=== PATIENT | female | born 1945 | race Caucasian/White ===

== ENCOUNTER 2017-07-27 03:28 | Inpatient (IN) | payer OTHER ==
[2017-07-27] VITALS (8 sets, daily range): BP systolic 87–127; BP diastolic 52–96
[~2017-07-27] VITALS: Ht 165.1 cm; Wt 117.0 kg
--- NOTE | 2017-07-27 03:28 | NUR ---
BIBA TO ER BED 11
--- NOTE | 2017-07-27 03:32 | NUR ---
72Y F BIBA FROM HOME, PT STATES SHE WAS GETTING OUT OF BED TO GO TO THE BATHROOM AND LEGS GAVE OUT AND FELL TO THE GROUND. DENIES LOC, DENIES PAIN. PT AAOX4. BREATHING IS UNLABORED AND EVEN. REDDNESS NOTED TO BILAT SHINS, RIGHT HAND THUMB. DENIES MEDICAL HX
--- NOTE | 2017-07-27 03:32 | NUR ---
Kathleen mak in ED - 07/27/17 at 0531 by MEDDM BIBA TO ER BED 11
--- NOTE | 2017-07-27 03:32 | NUR ---
UPON ASESSMENT, SHE PRESENTS HERSELF STATING SHE FELL WHILE IN THE BATHROOM AND LANDED ON HER HIP X 1 HOUR AGO WHILE WAS HOME. PT ARRIVED IN WHAT APPEARS TO BE HER OWN DRIED FECES. CHARGE NURSE AJ AND LIVIER ATTEMPETED TO CLEAN THE PT BUT WHEN USING WET WIPES, THE FECES APPEARED TO BE DRY AND HARD TO REMOVE. PT HAS A FOUL SMELL, WHERE HIYGENE IS QUESTIONABLE. PT HAS SEVERAL WOUNDS AND SKIN PROBLES; RANGING FROM BILAT LEG SWELLING AND REDDNESS, THERE IS WOUND THAT IS OOZING TO THE RIGHT GUERRERO. WOUND TO THE GENITAL AREA, REDDNESS UNDER BOTH BREAST, AND SUPRAPUBIC AREA. AFTER FULLY CLEANING THE PT WITH LUCIEN,WE BROUGHT THE BACK TO SEE THE PT, AND ADDRESSED TO THE THAT THE PT WILL MOST LIKLEY BE ADMITTED TO THE HOSPITAL. THE THEN STATED, "QUINN BEEN WAITING OUT THERE FOR 2 HOURS AND NO ONE COULD HAVE TOLD ME?" WE RESPONDED BY TELLING THE , THAT THE PT NEEDED TO BE CLEANED AND ASSESSED FIRST. AND WHEN SEEING THE PT THE THEN STATED WHEN HE SAW THE PT LEGS, "WOW I DIDNT KNOW YOUR LEGS WERE THAT RED, OK IF SHE IS STAYING THEN I AM GOING HOME."
[2017-07-27] MEDS ORDERED: NACL 0.9% 1,000 ML IV ONE (03:45)
--- NOTE | 2017-07-27 04:00 | NUR ---
Patient being evaluated by Dr. Strickland at bedside.
--- NOTE | 2017-07-27 04:04 | NUR ---
X-Ray at bedside.
[2017-07-27 04:06] LABS: MEAN CORPUSCULAR HEMOGLOBIN 31 pg (27-31); MEAN CORPUSCULAR HGB CONC 33 g/dL (33-37)
[2017-07-27 04:25] LABS: HEMATOCRIT 42.7 % (36-48); MEAN CORPUSCULAR VOLUME 93 fL (80-94); PLATELET COUNT (AUTO) 449 K/uL (140-450); RED BLOOD CELL COUNT(AUTO) 4.57 MIL/uL (4.20-5.40); RED CELL DISTRIBUTION WIDTH 13.1 % (11.6-13.7)
[2017-07-27 04:27] LABS: PROTHROMBIN TIME 13.3 secs (10.8-13.4)
[2017-07-27 04:36] LABS: ALBUMIN 3.1 g/dL (3.4-5.0); ANION GAP 21.7 (8-16); ASPARTATE AMINOTRANSFERASE 15 U/L (15-37); CHLORIDE 95 mmol/L (98-107); GLUCOSE 400 mg/dL (74-106); POTASSIUM 3.7 mmol/L (3.5-5.1); SODIUM SERUM 132 mmol/L (136-145); TOTAL BILIRUBIN 1.4 mg/dL (0.0-1.0); UREA NITROGEN, BLOOD 23 mg/dL (7-18)
--- NOTE | 2017-07-27 04:38 | NUR ---
Patient noted to have existing wounds upon arrival to ER. Photos taken of wound and placed in chart. Wound covered with dressing. Physician informed.
[2017-07-27 04:44] LABS: WHITE BLOOD COUNT (AUTO) 34.4 K/uL (4.8-10.8)
[2017-07-27 04:45] LABS: LYMPHOCYTES % (MANUAL) 3 % (20-46); MONOCYTES % (MANUAL) 2 % (5-12)
[2017-07-27] MEDS ORDERED: NACL 0.9% 3,500 ML IV ONE (04:45)
[2017-07-27] MEDS ORDERED: ASPIRIN 81 MG TAB.CHEW PO ONE (04:45)
[2017-07-27] MEDS ORDERED: CLINDAMYCIN 900 MG in DEXTROSE 5% 100 ML IV ONE (05:00)
[2017-07-27] MEDS ORDERED: ENOXAPARIN 120 MG/0.8 ML SYR SUBQ ONE (05:00)
[2017-07-27] MEDS ORDERED: PIPERACILLIN/TAZOBACTAM 3.375 GM in DEXTROSE 5% 50 ML IV ONE (05:00)
[2017-07-27] MEDS ORDERED: PIPERACILLIN/TAZOBACTAM 3.375 GM VIAL IV ONE (05:13)
[2017-07-27] MEDS: NACL 0.9% 1,000 ML IV SCH ×4 (05:57→20:30)
[2017-07-27] MEDS ORDERED: ONDANSETRON 4 MG/2 ML VIAL IVP PRN (06:00)
[2017-07-27] MEDS ORDERED: HYDROcodone/APAP 7.5/325 MG 1 TAB PO PRN (06:00)
[2017-07-27] MEDS ORDERED: ACETAMINOPHEN 325 MG TAB PO PRN (06:00)
[2017-07-27] MEDS ORDERED: NITROGLYCERIN 0.4 MG TAB SL PRN (06:05)
[2017-07-27 06:09] LABS: APPEARANCE,URINE HAZY (CLEAR); BILIRUBIN,URINE 1+ (NEGATIVE); BLOOD, URINE NEGATIVE (NEGATIVE); COLOR,URINE YELLOW (YELLOW); LEUKOCYTE ESTERASE ,URINE TRACE (NEGATIVE); NITRITE, URINE NEGATIVE (NEGATIVE); UGLUCOSE NEGATIVE (NEGATIVE)
[2017-07-27 06:22] LABS: RBC,URINE 0-5 (RARE) /HPF (0-5)
[2017-07-27 06:37] LABS: CHOL/HDL RATIO 2.1 (1-4.5); FREE T4 (FREE THYROXINE) 1.03 ng/dL (0.76-1.46); PHOSPHORUS 2.4 mg/dL (2.5-4.9); THYROID STIMULATING HORMONE 1.45 uIU/mL (0.34-3.74)
--- NOTE | 2017-07-27 06:41 | NUR ---
ADULT PROTECTIVE SERVICE PAPER FILLED OUT AND GIVEN TO
[2017-07-27] MEDS ORDERED: CLINDAMYCIN 900 MG/6 ML VIAL IV ONE (06:42)
--- NOTE | 2017-07-27 07:01 | NUR ---
Patient will be admitted to care of DR ALEMAN. Admited to TELE 112A. Will go to room 112A. Belongings list completed. Report to POLO BHAKTA .
--- NOTE | 2017-07-27 07:05 | NUR ---
RECEIVED REPORT FROM ER NURSE WITH PT IN STABLE CONDITION. AWAKE ALERT AND ORIENTED. ON TELE MONITOR. POSITIONED COMFORTABLY IN BED. WITH SUTTON CATHETER TO GRAVITY. WITH IVF INFUSING ON LT AC #20. WILL ENDORSED PT TO AM NURSE FOR ADMISSION ON THE UNIT.
--- NOTE | 2017-07-27 07:20 | NUR ---
PER DIVERSITY SPECIALIST NURSE, PATIENT WAS ADMITTED AND ARRIVED ON UNIT AT 0705. ONLY GENERAL ASSESSMENT, AND ONLY MRSA SCREENING DONE. RECEIVED REPORT FROM DIVERSITY SPECIALIST NURSE AT BEDSIDE FOR CONTINUITY OF CARE. PATIENT ALERT AND ORIENTED X4. PATIENT ON TELE MONITOR. IV AT LEFT AC 20 G, SALINE LOCKED, FLUIDS HANGING BUT UNCONNECTED. SUTTON CATHETER TO GRAVITY, 50 ML OF CLEAR YELLOW URINE. ON ROOM AIR. PATIENT HAS REDNESS ON LEFT CHEEK. YELLOW DISCHARGE IN HER EYES. PATIENT'S RIGHT THUMB HAS AN OPEN SORE. PATIENT HAS REDNESS ON UNDER HER BREAST FOLDS. PATIENT HAS REDNESS ON THE LEFT UPPER QUADRANT OF HER ABDOMEN. PATIENT HAS REDNESS ON HER ABDOMINAL FOLDS. PATIENT HAS REDNESS TO HER SACRAL AREA. PATIENT HAS A SORE ON HER DALJIT AREA. PATIENT'S LEFT LOWER EXTREMITY HAS REDNESS. PATIENT'S RIGHT LOWER LEG HAS PARTIAL THICKNESS. PATIENT'S RIGHT SECOND TOE HAS AN OPEN SORE AND NO NAIL. PATIENT DENIES PAIN. BED ON LOWEST SETTING, CALL LIGHT WITHIN REACH. WILL CONTINUE TO MONITOR.
[2017-07-27] MEDS: LACTOBACILLUS RHAMNOSUS GG 1 EACH CAP PO SCH ×3 (08:00→16:27)
[2017-07-27] MEDS: METOPROLOL 25 MG TAB PO SCH ×2 (08:52→21:00)
[2017-07-27] MEDS: DOCUSATE SODIUM 100 MG GELCAP PO SCH ×2 (08:53→20:41)
--- NOTE | 2017-07-27 08:56 | NUR ---
ADMINISTERED MORNING MEDICATIONS TO PATIENT. LACTOBICILLUS NOT ADMINISTERED, IT WAS NOT AVAILABLE IN [facility]. PHARMACY HAS BEEN NOTIFIED. PATIENT TOLERATED MEDS WELL. WILL CONTINUE TO MONITOR.
[2017-07-27] MEDS ORDERED: LISINOPRIL 5 MG TAB PO SCH (09:00)
[2017-07-27] MEDS ORDERED: INSULIN LISPRO SLIDING SCALE 100 UNITS/ML VIAL SUBQ PRN (09:45)
[2017-07-27] MEDS ORDERED: DEXTROSE 50% 50 ML SYR IVP PRN ×2 (09:45→22:05)
[2017-07-27] MEDS ORDERED: hePARIN / DEXT 5% PREMIX 250 ML IV SCH (09:45)
[2017-07-27] MEDS ORDERED: HEPARIN PER PHARMACY MC PRN (09:45)
--- NOTE | 2017-07-27 10:08 | NUR ---
PATIENT HAS BEEN SCREENED AND CATEGORIZED HIGH NUTRITION RISK. PATIENT WILL BE SEEN WITHIN 1-2 DAYS OF ADMISSION. 07/27/17-07/28/[address]
[2017-07-27] MEDS ORDERED: SODIUM PHOS / POTASSIUM PHOS 1 PKT PDR PO SCH (10:16)
[2017-07-27] MEDS ORDERED: ALBUTEROL SULFATE/IPRATROPIU 3 ML SOL IH PRN (10:35)
--- NOTE | 2017-07-27 10:43 | NUR ---
P.T. NOTES RECEVIED P.T. EVAL ORDER, CHART REVIEWED, WHEN ATTEMPTING TO RECEIVE CLEARANCE FROM NRSG, PER KIRSTEN NURSE PT WILL BE TRANSFERRED TO ICU FOR DKA, BS AT 400. THIS P.T. SPOKE WITH DR. COOMBS TO CANCEL ORDER FOR P.T., WILL AWAIT UNTIL PT IS MORE MEDICALLY STABLE BEFORE P.T. EVAL UPON MD ORDER, DR. COOMBS AGREED. PVE
--- NOTE | 2017-07-27 10:50 | NUR ---
KARLA REPORTED TO DR WOLFE 3L N\C TO BE PLACED Addendum: 07/27/17 at 1149 by Jenny Wade RT DR COOMBS
[2017-07-27] MEDS ORDERED: HYDROmorphone PFS 2 MG/ML SYR IVP SCH ×2 (11:00→15:30)
--- NOTE | 2017-07-27 11:15 | NUR ---
TRANSFERRED PT TO THE ICU. PT ON TRANSPORT MONITOR, O2 IN TOW. PT TOLERATING WELL.
[2017-07-27] MEDS ORDERED: BLOOD GLUCOSE MONITORING 1 DEV DEV FS SCH (11:30)
--- NOTE | 2017-07-27 11:30 | NUR ---
PT TRANSFERRED FROM TELEMETRY. PT IS IN STABLE CONDITION.
--- NOTE | 2017-07-27 11:31 | NUR ---
PT IS ALERT AND ORIENTED X4, FOLLOWS COMMANDS, FRISIAN SPEAKING. ST ON MONITOR. PT IS ON O2 AT 4 LPM/NC, LUNGS SOUND CLEAR BILATERALLY. PERIPHERAL IV G20 TO PATENT AND INTACT. ABDOMEN SOFT, NONTENDER. SUTTON CATH IN PLACE DRAINING URINE TO GRAVITY DRAINAGE BAG. SKIN IS WARM TO TOUCH. REDNESS NOTED AT BREAST AND ABD FOLDS, AND RECTAL AREA. DRESSINGS TO RIGHT FOOT AND RIGHT LOWER LEG CLEAN, DRY AND INTACT. BED IN LOW POSITION AND CALL LIGHT WITHIN REACH. WILL CONTINUE TO MONITOR.
--- NOTE | 2017-07-27 11:40 | NUR ---
GAVE REPORT TO CAITLIN, LATEX SPOOLER. PT IN STABLE CONDITION.
[2017-07-27] MEDS ORDERED: INSULIN HUMAN REGULAR 100 UNITS in NACL 0.9% 100 ML IV SCH (11:45)
[2017-07-27] MEDS: BLOOD GLUCOSE MONITORING 1 DEV DEV FS SCH ×14 (11:51→23:35)
[2017-07-27] MEDS: PIPER/TAZO 2.25GM/D5W PREMIX 50 ML IV SCH ×3 (12:00→23:36)
[2017-07-27] MEDS ORDERED: LACTOBACILLUS RHAMNOSUS GG 1 EACH CAP PO SCH (12:00)
[2017-07-27] MEDS: CIPROFLOXACIN 0.3% OP 2.5 ML BTL LEFT EYE SCH ×4 (12:00→23:36)
--- NOTE | 2017-07-27 12:06 | NUR ---
CALLED AND NOTIFIED GEMA THAT SHE WAS TRANSFERRED TO ICU. VERBALIZED UNDERSTANDING.
[2017-07-27 12:48] LABS: ANION GAP 11.4 (8-16); CARBON DIOXIDE 25.9 mmol/L (21-32); CHLORIDE 99 mmol/L (98-107); CREATININE 1.5 mg/dL (0.6-1.3); GLUCOSE 309 mg/dL (74-106); POTASSIUM 3.3 mmol/L (3.5-5.1); SODIUM SERUM 133 mmol/L (136-145); UREA NITROGEN, BLOOD 24 mg/dL (7-18)
[2017-07-27 12:51] LABS: PHOSPHORUS 2.6 mg/dL (2.5-4.9)
--- NOTE | 2017-07-27 12:58 | NUR ---
PT IS SLEEPING WITH NO SIGNS OF DISTRESS NOTED NO HHN GIVEN AT THIS TIME Addendum: 07/27/17 at 1311 by Daksha Phillip RT WOKE PT UP TO SEE IF SHE WANTED HER BREATHING TX PT STATED SHE WAS FINE AND WANTED TO SLEEP
[2017-07-27] MEDS ORDERED: CLINDAMYCIN 600 MG in DEXTROSE 5% 50 ML IV SCH (13:00)
[2017-07-27] MEDS: ALBUTEROL SULFATE/IPRATROPIU 3 ML SOL IH SCH ×2 (13:01→18:29)
--- NOTE | 2017-07-27 13:15 | NUR ---
AT BEDSIDE AND WAS UPDATED ON PT.
[2017-07-27] MEDS ORDERED: VANCOMYCIN PER PHARMACY MC PRN (13:30)
--- NOTE | 2017-07-27 13:30 | NUR ---
DR. ARCOS IN TO SEE AND EXAMINE PT. WILL FOLLOW UP ON ORDERS.
[2017-07-27] MEDS: NYSTATIN/TRIAMCINOLONE CRM 15 GM TUBE TP SCH ×2 (14:23→16:53)
[2017-07-27] MEDS: VANCOMYCIN 1GM/DEXT 5% PREMIX 200 ML IV SCH (15:27)
--- NOTE | 2017-07-27 16:15 | NUR ---
CENTRAL LINE INSERTION COMPLETED. PT TOLERATED WELL. WILL CONTINUE TO MONITOR.
--- NOTE | 2017-07-27 16:21 | NUR ---
ABG DRAWN ON RB WITHOUT INCIDENT AND RESULTS GIVEN TO AND PT WAS PLACED ON 6L VENTI MASK AT 30% AND LIVIA RASCON NOTIFIED
--- NOTE | 2017-07-27 16:55 | NUR ---
INCREASED VENTI MASK TO 40% DUE TO LOW O2 SAT OF 85% AND RN ABIODUN NOTIFIED
--- NOTE | 2017-07-27 17:00 | NUR ---
PT IS ASLEEP. AT BEDSIDE. NO SOB OR OTHER S/SX OF ACUTE DISTRESS. WILL CONTINUE TO MONITOR.
[2017-07-27 17:09] LABS: ANION GAP 12.5 (8-16); CARBON DIOXIDE 24.7 mmol/L (21-32); CHLORIDE 102 mmol/L (98-107); CREATININE 1.4 mg/dL (0.6-1.3); GLUCOSE 225 mg/dL (74-106); POTASSIUM 3.2 mmol/L (3.5-5.1); SODIUM SERUM 136 mmol/L (136-145); UREA NITROGEN, BLOOD 26 mg/dL (7-18)
[2017-07-27 17:27] LABS: MAGNESIUM 2.1 mg/dL (1.8-2.4); PHOSPHORUS 2.9 mg/dL (2.5-4.9)
[2017-07-27] MEDS: hePARIN / DEXT 5% PREMIX 250 ML IV SCH (17:57)
[2017-07-27] MEDS ORDERED: POTASSIUM CHLORIDE 40 MEQ, LIDOCAINE 1% 25 MG in NACL 0.9% 250 ML IV SCH (18:00)
--- NOTE | 2017-07-27 19:20 | NUR ---
RECEIVED REPORT FROM LIVIA TUCKER AT BEDSIDE, PT IS DROWSY, FLACC 0, VSS, CENTRAL LINE TO RIJ TLC, RUNNING WITH NS AT 250ML/HR, HEPARIN DRIP AT 1000 UNITS/HR, INSULIN DRIP AT 4 UNITS/HR. CLEAR LUNG SOUND, ON VENTURI MASK AT FIO2 40, ST ON AGRICULTURAL ENGINEERING TECHNOLOGIST, SOFT ABDOMEN WITH ACTIVE BOWEL SOUNDS, NPO EXCEPT MEDS AT THIS TIME, F/C IN PLACE WITH CLEAR URINE DRAINING WELL VIA GRAVITY. SKIN IS WARM AND DRY TO TOUCH, MULTIPLE WOUND PRESENT(SEE WOUND ASSESSMENT), GENERALIZED EDEMA NOTED, GENERALIZED WEAKNESS NOTED, HOB ELEVATED TO 30 DEGREES, POSITION CHANGED FOR OFF LOAD PRESSURE, SAFETY MEASURES IN PLACE, WILL CONTINUE TO MONITOR.
--- NOTE | 2017-07-27 19:25 | NUR ---
REPORT GIVEN TO NIGHT NURSE FOR CONTINUITY OF CARE. PT IS IN STABLE CONDITION.
--- NOTE | 2017-07-27 19:30 | NUR ---
ACCU CHECK DONE WITH 131 MG/DL RESULT, NO CHANGE OF DOSAGE OF INSULIN DRIP AT THIS TIME ORDERED.
--- NOTE | 2017-07-27 19:38 | NUR ---
DR. CHEN CAME TO SEE PT AT BEDSIDE, NO NEW ORDER AT THIS TIME.
--- NOTE | 2017-07-27 20:10 | NUR ---
PT IS AWAKE, ALERT, ORIENTED X4 AT THIS TIME, ABLE TO FOLLOW COMMANDS, PT HAD A LOOSE AND PASTY STOOL, DALJIT CARE PROVIDED, PLACED PT AT A COMFORT POSITION, WILL CONTINUE TO MONITOR.
--- NOTE | 2017-07-27 20:24 | NUR ---
SPOKE WITH DR. ROD (RESIDENT) AT 2009 TO GET ORDER FOR PTT LAB DRAW FOR 12 MN AND 0600 PER HEPARIN DRIP PROTOCOL.
[2017-07-27] MEDS: ATORVASTATIN 20 MG TAB PO SCH (20:58)
--- NOTE | 2017-07-27 21:00 | NUR ---
HOLD METOPROLOL AT THIS TIME DUE TO BP 92/44.
[2017-07-27 21:19] LABS: ANION GAP 11.8 (8-16); CARBON DIOXIDE 24.4 mmol/L (21-32); CHLORIDE 106 mmol/L (98-107); CREATININE 1.4 mg/dL (0.6-1.3); GLUCOSE 73 mg/dL (74-106); POTASSIUM 3.2 mmol/L (3.5-5.1); SODIUM SERUM 139 mmol/L (136-145); UREA NITROGEN, BLOOD 26 mg/dL (7-18)
[2017-07-27 21:25] LABS: PHOSPHORUS 2.8 mg/dL (2.5-4.9)
--- NOTE | 2017-07-27 21:35 | NUR ---
ACCU CHECK WITH RESULT OF 93 MG/DL, ANION CAP RESULT IS 11.8, DR. FULLER MADE AWARE, WILL FOLLOW PROTOCOL TO D/C INSULIN DRIP.
--- NOTE | 2017-07-27 22:00 | NUR ---
PT IS ASLEEP IN BED, VSS, POSITION CHANGED FOR OFF LOAD PRESSURE.
[2017-07-27] MEDS: DEXT 5% /NACL 0.9% 1,000 ML IV SCH (22:05)
[2017-07-28] VITALS (11 sets, daily range): BP systolic 86–111; BP diastolic 46–57
--- NOTE | 2017-07-28 00:30 | NUR ---
PTT RESULT IS 38.5, BOLUS 2500 UNITS HEPARIN GIVEN AND INCREASED HEPARIN DRIP TO 1150 UNITS/HR PROTOCOL.
[2017-07-28 00:46] LABS: ANION GAP 12.1 (8-16); CARBON DIOXIDE 24.2 mmol/L (21-32); CHLORIDE 105 mmol/L (98-107); CREATININE 1.4 mg/dL (0.6-1.3); GLUCOSE 125 mg/dL (74-106); POTASSIUM 3.3 mmol/L (3.5-5.1); SODIUM SERUM 138 mmol/L (136-145); UREA NITROGEN, BLOOD 25 mg/dL (7-18)
[2017-07-28 00:50] LABS: PHOSPHORUS 3.1 mg/dL (2.5-4.9)
--- NOTE | 2017-07-28 02:00 | NUR ---
PT IS ASLEEP IN BED, NO CHANGE OF CONDITION AT THIS TIME, VSS. POSITION CHANGED FOR OFF LOAD PRESSURE.
[2017-07-28] MEDS: DEXT 5% /NACL 0.9% 1,000 ML IV SCH (04:00)
[2017-07-28] MEDS: BLOOD GLUCOSE MONITORING 1 DEV DEV FS SCH ×6 (04:00→20:15)
--- NOTE | 2017-07-28 04:00 | NUR ---
AM CARE AND ORAL CARE PROVIDED, F/C CARE PROVIDED, POSITION CHANGED FOR OFF LOAD PRESSURE, NO CHANGE OF CONDITION AT THIS TIME, VSS.
[2017-07-28] MEDS: CIPROFLOXACIN 0.3% OP 2.5 ML BTL LEFT EYE SCH ×6 (04:07→23:56)
[2017-07-28] MEDS: INSULIN LISPRO SLIDING SCALE 100 UNITS/ML VIAL SUBQ PRN ×2 (04:09→20:21)
[2017-07-28] MEDS ORDERED: NACL 0.9% 1,000 ML IV SCH (04:12)
[2017-07-28] MEDS: PIPER/TAZO 2.25GM/D5W PREMIX 50 ML IV SCH ×4 (05:38→23:56)
--- NOTE | 2017-07-28 06:00 | NUR ---
NO CHANGE OF CONDITION AT THIS TIME, VSS, DR. COOMBS CAME TO SEE PT AT BEDSIDE.
[2017-07-28 06:34] LABS: HEMATOCRIT 33.9 % (36-48); HEMOGLOBIN 11.1 g/dL (12.0-16.0); MEAN CORPUSCULAR HEMOGLOBIN 31 pg (27-31); MEAN CORPUSCULAR HGB CONC 33 g/dL (33-37); MEAN CORPUSCULAR VOLUME 94 fL (80-94); PLATELET COUNT (AUTO) 367 K/uL (140-450); RED BLOOD CELL COUNT(AUTO) 3.63 MIL/uL (4.20-5.40)
[2017-07-28] MEDS: ALBUTEROL SULFATE/IPRATROPIU 3 ML SOL IH SCH ×3 (06:37→18:46)
[2017-07-28 06:49] LABS: CARBON DIOXIDE 24.1 mmol/L (21-32); CHLORIDE 107 mmol/L (98-107); CREATININE 1.3 mg/dL (0.6-1.3); GLUCOSE 165 mg/dL (74-106); POTASSIUM 3.1 mmol/L (3.5-5.1); SODIUM SERUM 139 mmol/L (136-145); UREA NITROGEN, BLOOD 23 mg/dL (7-18)
[2017-07-28 06:57] LABS: MAGNESIUM 2.1 mg/dL (1.8-2.4)
--- NOTE | 2017-07-28 07:15 | NUR ---
RECEIVED REPORT FROM NOC SHIFT RN. PT RESTING IN BED COMFORTABLY. NO ACUTE DISTRESS. SR ON MONITOR. PT A/O X4. ON VENTURI MASK AT 40%. SKIN DRY AND WARM TO TOUCH. PUPILS REACTIVE TO LIGHT. RIGHT IJ TRIPLE LUMEN IN PLACE, INTACT. LUNGS SOUND CLEAR ON AUSCULTATION. REDNESS PRESENT UNDER BOTH BREASTS, UNDER ABDOMINAL FOLDS AND BETWEEN BUTTOCKS FOLD. ABDOMEN SOFT AND NONTENDER. BOWEL SOUNDS PRESENT ON ALL FOUR QUADRANTS. REDNESS PRESENT ON LEFT LOWER EXTREMITY AND OPEN WOUND PRESENT ON RIGHT LOWER EXTREMITY AND RIGHT SECOND TOE. SUTTON'S CATH IN PLACE. WILL CONTINUE TO MONITOR.
[2017-07-28 07:27] LABS: LYMPHOCYTES % (MANUAL) 2 % (20-46); MONOCYTES % (MANUAL) 5 % (5-12)
[2017-07-28] MEDS ORDERED: BLOOD GLUCOSE MONITORING 1 DEV DEV FS SCH (07:30)
--- NOTE | 2017-07-28 07:35 | NUR ---
DR. ALEMAN AND RESIDENT GROUP IN TO SEE THE PT. WILL FOLLOW UP ON ORDER.
[2017-07-28] MEDS ORDERED: POTASSIUM CHLORIDE 40 MEQ, LIDOCAINE 1% 25 MG in NACL 0.9% 250 ML IV SCH (08:00)
[2017-07-28] MEDS: LACTOBACILLUS RHAMNOSUS GG 1 EACH CAP PO SCH ×3 (08:24→17:23)
[2017-07-28] MEDS: NYSTATIN/TRIAMCINOLONE CRM 15 GM TUBE TP SCH ×3 (08:25→17:23)
[2017-07-28] MEDS: ASPIRIN 81 MG TAB.CHEW PO SCH (08:25)
[2017-07-28] MEDS: DOCUSATE SODIUM 100 MG GELCAP PO SCH ×2 (08:25→20:19)
[2017-07-28] MEDS: INSULIN DETEMIR 100 UNITS/ML 10 ML VIAL SUBQ SCH (08:51)
[2017-07-28] MEDS: METOPROLOL 25 MG TAB PO SCH ×2 (08:52→20:18)
--- NOTE | 2017-07-28 09:00 | NUR ---
PT TOLERATING MEDS WELL. WILL CONTINUE TO MONITOR.
[2017-07-28] MEDS ORDERED: CALCIUM CARB/VIT-D 500 MG/200 IU 1 TAB PO SCH (09:10)
[2017-07-28] MEDS ORDERED: POTASSIUM CHLORIDE 10 MEQ TABER PO SCH (09:11)
--- NOTE | 2017-07-28 09:39 | NUR ---
FAXED FACE SHEET TO DR. GRIMM.
--- NOTE | 2017-07-28 10:00 | NUR ---
KEPT PT CLEAN AND DRY. NO ACUTE DISTRESS NOTED. WILL CONTINUE TO MONITOR.
--- NOTE | 2017-07-28 10:08 | NUR ---
DR. ASHER IN TO SEE PT. WILL FOLLOW UP ON ORDERS.
--- NOTE | 2017-07-28 10:13 | NUR ---
PT'S PRESENT AT BEDSIDE.
--- NOTE | 2017-07-28 10:45 | NUR ---
DR. OLSON IN TO SEE PT. WILL FOLLOW UP ON ORDER.
--- NOTE | 2017-07-28 11:45 | NUR ---
WOUND CARE EVALUATION NOTE: REASON FOR EVALUATION: MULTIPLE WOUNDS COMPLETE SKIN ASSESSMENT DONE ON THIS 72 Y/O MALE PATIENT FROM HOME TO [facility], WITH INITIAL DIAGNOSIS OF GENERAL WEAKNESS. PAST MEDICAL HISTORY INCLUDE STREP BACTEREMIA AND APPENDECTOMY. ALL ABOVE INFORMATION WAS OBTAINED FROM THE ADMISSION H&P AND PT. LABS ARE WBC 25, H/H 11.1/33.9, GLUCOSE 115 AND ALBUMIN 2.1 PT/INR 13.3/1.3 AND PTT 41.4. CURRENT MEDS INCLUDE VANCOMYCIN, INSULIN, ASPIRIN AND ATORVASTATIN. PATIENT IS SKIN WARM TO TOUCH WNL, TOENAILS ARE SLIGHTLY THICKENED, BLE EDEMA,, WITH NO HAIR GROWTH AND BILATERAL PEDAL PULSES PRESENT. ON 02 PER NASAL CANNULA. PLAN OF CARE DISCUSS WITH PRIMARY RN AND PT. PT VERBALIZE UNDERSTANDING. INTEGUMENTARY: BUE AND BLE DRY FLAKY SKIN UNDER BREAST FOLDS, ABDOMINAL FOLDS, GROINGS AND INNER THIGHS SKIN FOLDS INTERTRIGO MID ABDOMINAL DRY SCAB 2X2CM SURROUNDING REDNESS AREA 2.5X2.5CM RIGHT BUTTOCK - 3 DRY MOISTURE ASSOCIATE DERMATITIS (MAD)WITH LARGEST MEASURE 1.5X1.5 CM, WOUND BED PALE PINK, DRY , NO ODOR LEFT BUTTOCK MAD 9X4 CM SKIN INTACT RIGHT MEDIAL THIGH TOWARD POSTERIOR PERINEAL AREA MAD 2X2 CM , WOUND BED PINK, DRY RIGHT THUMB DRY SCAB 2X1 CM LIGHT BROWNISH IN COLOR, OTHER FINGER TIPS LIGHT PURPLE IN COLOR, SKIN INTACT RIGHT LOWER LEG CELLULITIS WOUND 4X4X.01 CM SMALL AMOUNT SEROUS DRAINAGE, NO ODOR, WITH SURROUNDING TISSUE ERYTHEMA LEFT LOWER EXTREMITY +3 EDEMA, ERYTHEMA TO ENTIRE AREA RIGHT 2ND TOE NAIL OFF WITH WOUND BED BROWN IN COLOR AND DALJIT WOUND RED, NO DRAINAGE, NO ODOR SACRALCOCCYX AND BILATERAL HEELS BLANCHABLE REDNESS RECOMMENDATIONS: -CLEANSE UNDER BREAST FOLDS, ABDOMINAL FOLDS, GROINGS AND INNER THIGHS SKIN FOLDS WITH MILD SOAP AND WATER, PAT DRY AND APPLY ANTIFUNGAL CREAMS BIDWC AND APPLY INTERDRY QD. MAY CHANGE INTERDRY Q7DAYS AND PRN IF SOILING -SACRALCOCCYX, BILATERAL BUTTOCKS, PERINEAL: CLEANSE WITH MILD SOAP AND WATER, PAT DRY, APPLY HYDRAGUARD BIDWC AND PRN WITH SOILING -APPLY OPTIFORM TO BUTTOCKS AND RIGHT MEDIAL THIGH TOWARD POSTERIOR PERINEAL AREA CHANGE Q 5 DAYS AND PRN IF SOILING - PAINT MID ABDOMINAL DRY SCAB, RIGHT THUMB AND RIGHT 2ND TOE WITH BETADINE BIDWC AND LEAVE OPEN TO AIR -APPLY SKIN PROTECTIVE BARRIER WIPE TO ALL FINGERTIPS EXCEPT RIGHT THUMB -APPLY HYDRAGUARD TO BUE AND BLE BIDWC AND LEAVE IT OPEN TO AIR -TURN AND REPOSITION PATIENT Q2H TO LEFT AND RIGHT SIDE ONLY TO OFFLOAD SACRALCOCCYX AND BUTTOCKS, WITH THE EXCEPTION DURING MEALTIMES. -ASSESS AND MONITOR SKIN CONDITION DURING POSITION CHANGE, PLEASE PAY ATTENTION TO SACRALCOCCYX, ELBOWS AND HEELS -OFFLOAD BILATERAL HEELS BY PLACING PILLOWS UNDER CALVES AT ALL TIMES, UNLESS OTHERWISE CONTRAINDICATED -KEEP SKIN CLEAN AND DRY AT ALL TIMES. -PRESSURE REDISTRIBUTION SURFACE THERAPY. RECOMMENDATIONS DISCUSSED WITH PRIMARY RN WILL FOLLOW UP PATIENT Q7 -10 DAYS AND PRN. PLEASE CONTACT [facility] FOR ANY CONCERNS, QUESTIONS AND CHANGES IN WOUND CONDITION.
--- NOTE | 2017-07-28 11:57 | NUR ---
SEEN BY DR. ARCOS. WILL FOLLOW UP ON ORDER.
[2017-07-28] MEDS ORDERED: DEXT 5% / NACL 0.45% 1,000 ML IV SCH (12:00)
--- NOTE | 2017-07-28 12:00 | NUR ---
SEEN BY DR. CHAPPELL. WILL FOLOW UP ON ORDER.
--- NOTE | 2017-07-28 12:28 | NUR ---
DR. MOORE IN TO SEE PT WILL FOLLOW UP ON ORDER.
--- NOTE | 2017-07-28 12:51 | NUR ---
PT IS ASLEEP NO HHN GIVENHR 91 RR 20 SPO2 96
--- NOTE | 2017-07-28 13:15 | NUR ---
PT RESTING IN BED COMFORTABLY. NO CHANGE IN LOC. FAMILY AT BEDSIDE. WILL CONTINUE TO MONITOR.
[2017-07-28 13:30] LABS: ALBUMIN 2.1 g/dL (3.4-5.0); BILIRUBIN,DIRECT 0.1 mg/dL (0.0-0.3); TOTAL BILIRUBIN 0.7 mg/dL (0.0-1.0)
[2017-07-28] MEDS: NACL 0.9% 1,000 ML IV SCH ×2 (13:34→22:40)
[2017-07-28] MEDS: METOCLOPRAMIDE 10 MG/2 ML INJ VIAL IVP SCH ×2 (13:42→20:17)
[2017-07-28] MEDS: hePARIN / DEXT 5% PREMIX 250 ML IV SCH (13:46)
--- NOTE | 2017-07-28 14:00 | NUR ---
PT REQUEST CHANGE TO 3L N/C SPO2 94
--- NOTE | 2017-07-28 15:04 | NUR ---
07/28/17 RD INITIAL ASSESSMENT COMPLETED PLEASE REFER TO NUTRITION ASSESSMENT UNDER CARE ACTIVITY FOR ESTIMATED NUTRITIONAL NEEDS. 1. CONTINUE CLEAR LIQUID DIET WITH NO CONCENTRATED SWEETS, PER MD 2. WHEN MEDICALLY APPROPRIATE CONSIDER ADVANCE DIET TO CCHO [address] PROVIDED PT WITH HEALTHY EATING EDUCATIONAL HANDOUTS 4. RD TO FOLLOW-UP 3-5 DAYS, MODERATE RISK SMITHA SHELL RD
[2017-07-28] MEDS: VANCOMYCIN 1GM/DEXT 5% PREMIX 200 ML IV SCH (15:05)
--- NOTE | 2017-07-28 15:21 | NUR ---
PT RESTING IN BED COMFORTABLY. NO CHANGE IN LOC. WILL CONTINUE TO MONITOR.
--- NOTE | 2017-07-28 17:36 | NUR ---
PT SLEEPING IN BED COMFORTABLY. NO CHANGE IN LOC. WILL CONTINUE TO MONITOR.
--- NOTE | 2017-07-28 17:47 | NUR ---
PT SEEN BY DR. MANDUJANO. WILL FOLLOW UP ON ORDER.
--- NOTE | 2017-07-28 18:22 | NUR ---
DR. MOORE IN TO SEE PT. WILL FOLLOW UP ON ORDERS.
--- NOTE | 2017-07-28 18:23 | NUR ---
DR. CHEN IN TO SEE PT. WILL FOLLOW UP ON ORDERS.
--- NOTE | 2017-07-28 19:20 | NUR ---
REPORT RECEIVED FROM MORNING NURSE, LIVIA HOLLINS. PT IS A&OX4. PERRL. DANISH SPEAKING. CENTRAL LINE TO RIGHT IJ WITH TRIPLE LUMENS. ALL PATENT AND ASYMPTOMATIC. BILATERAL LUNG SOUNDS CLEAR. O2 VIA NC @ 3L/MIN. S1 AND S2 HEARD WITHOUT ANY ABNORMAL HEART SOUNDS. BOWEL SOUNDS ACTIVE FROM ALL 4 QUADS. LEFT LOWER LEG WITH GENERALIZED REDDENED AREA AND WARM TO TOUCH. PAIN STATES IT HURTS WHEN PALPATED BUT NO PAIN WHEN RESTING. OPEN AREA NOTED TO SACROCOCCYX AREA. RIGHT 2ND DIGIT TOE WITH OPEN AREA. RIGHT LOWER EXTREMITY WITH OPEN WOUND. BILATERAL PEDAL PULSES PALPATED. BENI RASH NOTED TO BILATERAL UNDER BREAST AND ABDOMINAL FOLDS. SUTTON CATHETER DRAINING CLEAR YELLOW VIA GRAVITY. PT WILL HAVE HIDA GALL BLADDER SCAN SCHEDULE TOMORROW MORNING AND ORDER NOTED TO BE NPO AFTER MIDNIGHT. MORNING NURSE ENDORSED THAT NO NARCOTIC AFTER 5AM. PT DENIES PAIN AT THIS TIME AND AWARE OF THE PLAN OF CARE. ON CONTINUOUS SOLUTIONS DEVELOPMENT ANALYST AND VS STABLE AT THIS TIME. CALL LIGHT IN REACH. HOB ELEVATED 30 DEGREES. BED KEPT TO THE LOWEST POSITION. WILL CONTINUE TO MONITOR.
[2017-07-28] MEDS: POTASSIUM CHLORIDE 20% 40 MEQ/15 ML UDC PO SCH (20:18)
[2017-07-28] MEDS: ATORVASTATIN 20 MG TAB PO SCH (20:18)
[2017-07-28] MEDS: CALCIUM CARB/VIT-D 500 MG/200 IU 1 TAB PO SCH (20:18)
[2017-07-28] MEDS: SENNA 8.6 MG TAB PO SCH (20:19)
--- NOTE | 2017-07-28 21:25 | NUR ---
PT HAD SMALL AMOUNT OF GREENISH BLACK LOOSE STOOL. ASSISTED WITH HYGIENE AND DRESSING TO SACROCOCCYX REPLACED. TOLERATED WELL.
--- NOTE | 2017-07-28 22:10 | NUR ---
DR. MOORE AT BED SIDE. WILL FOLLOW UP WITH ANY NEW ORDERS.
--- NOTE | 2017-07-28 22:53 | NUR ---
PT WILL BE TRANSFERRED TO TELEMETRY ROOM 107B.
--- NOTE | 2017-07-28 23:00 | NUR ---
PT WAS TRANSFERRED TO TELEMETRY ROOM 107B WITH 4 RNS. PT TOLERATED WELL. TELEMETRY BOX WAS APPLIED. BED SIDE REPORT GIVEN TO LIVIA KU IN TELEMETRY INCLUDING NPO AFTER MIDNIGHT FOR HIDA GB SCAN IN AM. PT TOLERATED WELL. ALL CARE TRANSFERRED TO [facility] AT THIS TIME.
--- NOTE | 2017-07-28 23:01 | NUR ---
RECEIVED PT FROM ICU, REPORT GIVEN AT THE BEDSIDE, PT IN STABLE CONDITION. PT AAOX4, ON 2L 02 VIA NC. PT HAS R IJ CENTRAL CATHETER TRIPLE LUMEN, PATENT AND INTACT, INFUSING WELL. PT HAS R LOWER LEG WOUND BANDAGE DRY AND INTACT, R TOE WITHOUT TOE NAIL, BANDAGE PATENT AND INTACT, CELLULITIS TO LEFT LOWER EXTREMITY, WOUND TO THE COCCYX BANDAGE DRY AND INTACT. BURN TO THE RIGHT THUMB NOTED. PT HAS SUTTON CATHETER IN PLACE DRAINING YELLOW, CLEAR URINE. SKIN WARM AND DRY TO TOUCH, INITIAL ASSESSMENT COMPLETED. PLAN OF CARE DISCUSSED WITH PT AT BEDSIDE. PT VERBALIZED UNDERSTANDING. ALL SAFETY PRECAUTIONS MET, CALL LIGHT WITHIN REACH WILL CONTINUE TO MONITOR
[2017-07-29] VITALS: BP 114/63
[2017-07-29] MEDS: BLOOD GLUCOSE MONITORING 1 DEV DEV FS SCH ×6 (00:02→20:04)
[2017-07-29 04:00] VITALS: BP 119/67
[2017-07-29] MEDS: CIPROFLOXACIN 0.3% OP 2.5 ML BTL LEFT EYE SCH ×5 (04:30→20:12)
[2017-07-29] MEDS: INSULIN LISPRO SLIDING SCALE 100 UNITS/ML VIAL SUBQ PRN ×3 (04:31→20:10)
[2017-07-29] MEDS: METOCLOPRAMIDE 10 MG/2 ML INJ VIAL IVP SCH ×3 (04:37→20:13)
[2017-07-29] MEDS: NACL 0.9% 1,000 ML IV SCH ×2 (05:38→18:08)
[2017-07-29] MEDS: PIPER/TAZO 2.25GM/D5W PREMIX 50 ML IV SCH ×3 (05:47→17:53)
[2017-07-29] MEDS: ALBUTEROL SULFATE/IPRATROPIU 3 ML SOL IH SCH ×3 (07:10→20:19)
--- NOTE | 2017-07-29 07:16 | NUR ---
WHEN ASKED DR. FULLER ABOUT PLAN FOR DIARRHEA STATED DIARRHEA MOST LIKELY CAUSED BY METOFORMIN AND THAT THE WHO ORDERED SENNA ORDERED TOO HIGH OF A DOSE. Addendum: 07/30/17 at 0718 by Susan Jenkins RN INCORRECT TIME
--- NOTE | 2017-07-29 07:29 | NUR ---
GAVE REPORT TO DAY NURSE AT THE BEDSIDE FOR CONTINUITY OF CARE, PT IN STABLE CONDITION NO S/S OF DISTRESS NOTED
--- NOTE | 2017-07-29 07:41 | NUR ---
ENDORSEMENT RECEIVED FROM CONFECTIONERY DROPS MACHINE OPERATOR NURSE. PATIENT'S RESPIRATION EVEN, UNLABOR. SKIN DRY AND WARM. CALL LIGHT WITHIN REACH. WILL CONTINUE TO MONITOR
[2017-07-29 07:50] LABS: HEMATOCRIT 33.8 % (36-48); HEMOGLOBIN 11.4 g/dL (12.0-16.0); MEAN CORPUSCULAR HEMOGLOBIN 32 pg (27-31); MEAN CORPUSCULAR HGB CONC 34 g/dL (33-37); MEAN CORPUSCULAR VOLUME 94 fL (80-94); PLATELET COUNT (AUTO) 367 K/uL (140-450); WHITE BLOOD COUNT (AUTO) 17.7 K/uL (4.8-10.8)
[2017-07-29 08:00] VITALS: BP 135/65
[2017-07-29 08:15] LABS: ANION GAP 11.5 (8-16); CARBON DIOXIDE 23.6 mmol/L (21-32); CHLORIDE 109 mmol/L (98-107); CREATININE 1.1 mg/dL (0.6-1.3); GLUCOSE 142 mg/dL (74-106); POTASSIUM 4.1 mmol/L (3.5-5.1); SODIUM SERUM 140 mmol/L (136-145); UREA NITROGEN, BLOOD 14 mg/dL (7-18)
[2017-07-29 08:27] LABS: MAGNESIUM 2.1 mg/dL (1.8-2.4)
--- NOTE | 2017-07-29 08:30 | NUR ---
RADIOLOGY TECHS ARE AT THE BEDSIDE TO TRANSFER THE PATIENT. PATIENT IS STABLE AT THIS TIME. INSULIN WAS GIVEN PER ORDER. WILL CONTINUE TO MONITOR
[2017-07-29] MEDS: INSULIN DETEMIR 100 UNITS/ML 10 ML VIAL SUBQ SCH (08:34)
[2017-07-29] MEDS: DOCUSATE SODIUM 100 MG GELCAP PO SCH ×2 (09:00→21:00)
[2017-07-29] MEDS: SENNA 8.6 MG TAB PO SCH (09:00)
[2017-07-29 09:29] LABS: LYMPHOCYTES % (MANUAL) 4 % (20-46); MONOCYTES % (MANUAL) 4 % (5-12)
[2017-07-29 09:30] LABS: EOSINOPHILS % (MANUAL) 3 % (0-4)
[2017-07-29] MEDS ORDERED: MORPHINE SULFATE 2 MG/ML SYR IVP SCH (10:14)
[2017-07-29 12:00] VITALS: BP 162/96
[2017-07-29] MEDS: LACTOBACILLUS RHAMNOSUS GG 1 EACH CAP PO SCH ×3 (12:00→16:40)
--- NOTE | 2017-07-29 12:15 | NUR ---
PATIENT IS BACK TO THE UNIT. VS WAS TAKEN. PATIENT IS STABLE AT THIS TIME. RESPIRATION EVEN, UNLABOR. WILL MEDICATE PER ORDER
[2017-07-29] MEDS: POTASSIUM CHLORIDE 20% 40 MEQ/15 ML UDC PO SCH (12:17)
[2017-07-29] MEDS: METOPROLOL 25 MG TAB PO SCH ×2 (12:18→20:14)
[2017-07-29] MEDS: NYSTATIN/TRIAMCINOLONE CRM 15 GM TUBE TP SCH ×3 (12:18→16:39)
[2017-07-29] MEDS: ASPIRIN 81 MG TAB.CHEW PO SCH (12:19)
[2017-07-29] MEDS: CALCIUM CARB/VIT-D 500 MG/200 IU 1 TAB PO SCH ×2 (12:19→20:14)
--- NOTE | 2017-07-29 12:48 | NUR ---
INSULIN IS HELD DUE TO PATIENT IS NPO. WILL CONTINUE TO MONITOR
--- NOTE | 2017-07-29 12:49 | NUR ---
Advertising Supervisor attempted to met with Patient. She requested for brick kiln worker to return later after her breathing treatment was completed due to not been able to hear social media assistant and respond. brick kiln worker agreed and will come back to do a full screen on Patient and possible needs after discharge.
--- NOTE | 2017-07-29 13:00 | NUR ---
DRESSING WAS CHANGED ON THE BUTTOCK WOUND. CREAM WAS APPLIED UNDER THE FOLD WITH INTERDRY. PATIENT TOLERATED WELL. CALL LIGHT WITHIN REACH. WILL CONTINUE TO MONITOR
--- NOTE | 2017-07-29 14:58 | NUR ---
P.T. NOTES RECEIVED P.T. EVAL ORDER; HOLD P.T. EVAL TODAY, ATTEMPTED THIS MORNING, Pt UNAVAILABLE DUE TO HOSPITAL PROCEDURE, ATTEMPTED IN AFTERNOON, PER NURSE, Pt DECLINED & WANTS TO REST, REQUESTED TO BE SEEN TOMORROW FOR P.T.; FOLLOW UP TOMORROW. HUEY
[2017-07-29] MEDS: VANCOMYCIN 1GM/DEXT 5% PREMIX 200 ML IV SCH (15:11)
[2017-07-29 16:00] VITALS: BP 145/78
--- NOTE | 2017-07-29 16:00 | NUR ---
PATIENT AWAKE, ALERT. RESPIRATION EVEN, UNLABOR. NO DISTRESS NOTED AT THIS POINT. PATIENT DENIED PAIN. TEMP 100.4.L WILL MEDICATE PER ORDER. WILL CONTINUE TO MONITOR
[2017-07-29] MEDS: ESCITALOPRAM 20 MG TAB PO SCH (16:40)
[2017-07-29] MEDS: metFORMIN 500 MG TAB PO SCH (16:56)
--- NOTE | 2017-07-29 18:18 | NUR ---
PATIENT AWAKE, ALERT, EATING DINNER. RESPIRATION EVEN, UNLABOR. TEMP 99.4. DENIED PAIN AT THIS TIME. CENTRAL CATH INFUSING WELL. FAMILY AT BEDSIDE. CALL LIGHT WITHIN REACH. WILL CONTINUE TO MONITOR
--- NOTE | 2017-07-29 19:28 | NUR ---
ENDORSEMENT GIVEN TO THE CUSTOMER SOLUTIONS ARCHITECT NURSE. PATIENT IS STABLE AT THIS TIME
--- NOTE | 2017-07-29 19:29 | NUR ---
RECEIVED REPORT FROM DAY NURSE AT THE BEDSIDE PT IN STABLE CONDITION. PT AAOX4, ON 2L 02 VIA NC. PT HAS R IJ CENTRAL CATHETER TRIPLE LUMEN, PATENT AND INTACT, INFUSING WELL. PT HAS R LOWER LEG WOUND BANDAGE DRY AND INTACT, R TOE WITHOUT TOE NAIL, BANDAGE PATENT AND INTACT, CELLULITIS TO LEFT LOWER EXTREMITY, WOUND TO THE BUTTOCKS BANDAGE DRY AND INTACT. BURN TO THE RIGHT THUMB NOTED. PT HAS SUTTON CATHETER IN PLACE DRAINING YELLOW, CLEAR URINE. SKIN WARM AND DRY TO TOUCH, INITIAL ASSESSMENT COMPLETED. PLAN OF CARE DISCUSSED WITH PT AT BEDSIDE. PT VERBALIZED UNDERSTANDING. ALL SAFETY PRECAUTIONS MET, CALL LIGHT WITHIN REACH WILL CONTINUE TO MONITOR
[2017-07-29 20:00] VITALS: BP 148/68
[2017-07-29] MEDS: ATORVASTATIN 20 MG TAB PO SCH (20:14)
[2017-07-29] MEDS ORDERED: SENNA 8.6 MG TAB PO SCH (21:00)
[2017-07-29] MEDS: CLINDAMYCIN 600 MG in DEXTROSE 5% 50 ML IV SCH (21:33)
[2017-07-29] MEDS ORDERED: CLINDAMYCIN 600 MG/4 ML VIAL ONE (21:37)
--- NOTE | 2017-07-29 22:49 | NUR ---
DR. FULLER MADE AWARE OF DIARRHEA 2X ON MY SHIFT, SAID TO HOLD DOCUSATE AND SENNA.
--- NOTE | 2017-07-29 22:50 | NUR ---
WHEN ASKED DR. FULLER ABOUT PLAN FOR DIARRHEA STATED DIARRHEA MOST LIKELY CAUSED BY METOFORMIN AND THAT THE WHO ORDERED SENNA ORDERED TOO HIGH OF A DOSE.
[2017-07-30] VITALS: BP 147/68
[2017-07-30] MEDS: BLOOD GLUCOSE MONITORING 1 DEV DEV FS SCH ×7 (00:49→23:51)
[2017-07-30] MEDS: INSULIN LISPRO SLIDING SCALE 100 UNITS/ML VIAL SUBQ PRN ×5 (00:56→23:55)
[2017-07-30] MEDS: CIPROFLOXACIN 0.3% OP 2.5 ML BTL LEFT EYE SCH ×7 (00:57→23:47)
[2017-07-30 04:00] VITALS: BP 148/67
[2017-07-30] MEDS: NACL 0.9% 1,000 ML IV SCH (05:13)
[2017-07-30] MEDS: CLINDAMYCIN 600 MG in DEXTROSE 5% 50 ML IV SCH ×3 (05:27→20:18)
[2017-07-30] MEDS ORDERED: CLINDAMYCIN 600 MG/4 ML VIAL ONE (05:27)
[2017-07-30] MEDS: METOCLOPRAMIDE 10 MG/2 ML INJ VIAL IVP SCH (05:27)
[2017-07-30] MEDS: ALBUTEROL SULFATE/IPRATROPIU 3 ML SOL IH SCH ×3 (06:58→18:58)
[2017-07-30 07:22] LABS: BASOPHILS # (AUTO) 0.1 K/uL (0.00-0.22); BASOPHILS % (AUTO) 0.3 % (0.0-2.0); EOSINOPHILS # (AUTO) 0.2 K/uL (0-0.4); EOSINOPHILS % (AUTO) 0.9 % (0.0-4.0); HEMATOCRIT 36.8 % (36-48); HEMOGLOBIN 12.6 g/dL (12.0-16.0); LYMPHOCYTES # (AUTO) 1.5 K/uL (2.5-16.5); LYMPHOCYTES % (AUTO) 8.2 % (20.5-51.1); MEAN CORPUSCULAR HEMOGLOBIN 32 pg (27-31); MEAN CORPUSCULAR HGB CONC 34 g/dL (33-37); MEAN CORPUSCULAR VOLUME 94 fL (80-94); MONOCYTES # (AUTO) 0.7 K/uL (0.8-1.0); NEUTROPHILS # (AUTO) 15.2 K/uL (1.8-7.7); NEUTROPHILS % (AUTO) 86.6 % (42.2-75.2); PLATELET COUNT (AUTO) 405 K/uL (140-450); RED BLOOD CELL COUNT(AUTO) 3.94 MIL/uL (4.20-5.40); RED CELL DISTRIBUTION WIDTH 12.9 % (11.6-13.7)
--- NOTE | 2017-07-30 07:27 | NUR ---
GAVE REPORT TO DAY NURSE DELVIN RN FOR CONTINUITY OF CARE, PT IN STABLE CONDITION. NO S/S OF DISTRESS NOTED
--- NOTE | 2017-07-30 07:30 | NUR ---
RECEIVED REPORT FROM NIKIA RN. PT RESTING IN BED. AAOX4. NO S/S OF ACUTE DISTRESS. PT DENIES PAIN. ON O2 3L NC. SUTTON CATHETER PATENT. IV SITE PATENT AND INTACT. TELE BOX IN PLACE. PLAN OF CARE DISCUSSED WITH PATIENT. PT VERBALIZED UNDERSTANDING. DRESSINGS TO BILATERAL LEGS DRY AND INTACT. CALL LIGHT WITHIN REACH. SAFETY MEASURES ENSURED. WILL CONTINUE TO MONITOR.
[2017-07-30 07:35] LABS: ANION GAP 11.3 (8-16); CARBON DIOXIDE 25.2 mmol/L (21-32); CHLORIDE 103 mmol/L (98-107); CREATININE 0.9 mg/dL (0.6-1.3); GLUCOSE 159 mg/dL (74-106); MAGNESIUM 1.9 mg/dL (1.8-2.4); PHOSPHORUS 2.3 mg/dL (2.5-4.9); POTASSIUM 3.5 mmol/L (3.5-5.1); SODIUM SERUM 136 mmol/L (136-145); UREA NITROGEN, BLOOD 8 mg/dL (7-18)
[2017-07-30 08:00] VITALS: BP 148/84
[2017-07-30] MEDS: metFORMIN 500 MG TAB PO SCH ×2 (08:16→16:44)
[2017-07-30] MEDS: LACTOBACILLUS RHAMNOSUS GG 1 EACH CAP PO SCH (08:17)
[2017-07-30] MEDS: CALCIUM CARB/VIT-D 500 MG/200 IU 1 TAB PO SCH ×2 (08:17→20:19)
[2017-07-30] MEDS: METOPROLOL 25 MG TAB PO SCH ×2 (08:17→20:19)
[2017-07-30] MEDS: ASPIRIN 81 MG TAB.CHEW PO SCH (08:17)
[2017-07-30] MEDS: DOCUSATE SODIUM 100 MG GELCAP PO SCH ×2 (08:17→20:21)
[2017-07-30] MEDS: NYSTATIN/TRIAMCINOLONE CRM 15 GM TUBE TP SCH ×3 (08:18→16:45)
[2017-07-30 08:24] LABS: WHITE BLOOD COUNT (AUTO) 17.7 K/uL (4.8-10.8)
[2017-07-30] MEDS: INSULIN DETEMIR 100 UNITS/ML 10 ML VIAL SUBQ SCH (08:25)
--- NOTE | 2017-07-30 08:32 | NUR ---
AM MEDS GIVEN WITH EDUCATION. PT VERBALIZED UNDERSTANDING. SUTTON CATHETER TAKEN OUT. WILL CONTINUE TO MONITOR.
[2017-07-30] MEDS ORDERED: VANCOMYCIN 1GM/DEXT 5% PREMIX 200 ML IV SCH (09:00)
[2017-07-30] MEDS ORDERED: SODIUM PHOS / POTASSIUM PHOS 1 PKT PDR PO SCH (09:00)
[2017-07-30] MEDS ORDERED: LISINOPRIL 5 MG TAB PO SCH (10:23)
[2017-07-30 11:50] VITALS: BP 140/81
--- NOTE | 2017-07-30 14:27 | NUR ---
CM NOTE SPOKE W/ EDWARD FROM [facility] (C: [phone]) RE. FWW. PROVIDED PATIENT INFORMATION & REFERRAL.
--- NOTE | 2017-07-30 15:22 | NUR ---
CM NOTE PATIENT INFORMATION FAXED TO [facility] (FAX# [phone]) AND [facility] (FAX# [phone], ATTN: RICK).
[2017-07-30 16:00] VITALS: BP 141/70
--- NOTE | 2017-07-30 16:25 | NUR ---
PT SLEEPING IN BED. NO S/S OF ACUTE DISTRESS. WILL CONTINUE TO MONITOR.
[2017-07-30] MEDS: ESCITALOPRAM 20 MG TAB PO SCH (16:45)
--- NOTE | 2017-07-30 19:13 | NUR ---
ENDORSED PLAN OF CARE TO NIGHT RN
--- NOTE | 2017-07-30 19:14 | NUR ---
RECEIVED HANDOFF REPORT FROM AM RN. PATIENT A&OX4. PATIENT STATES HAVING INDIGESTION BUT DENIES CHEST PAIN. PATIENTS VITALS ARE STABLE HR 98, BP 138/81, TEMP 97.1 O2 91 ON 2L O2 NC. PATIENT DENIES SOB. PATIENT HAS RIGHT IJ TRIPLE LUMEN , PATENT AND INTACT. PATIENT HAS BILATERAL LOWER EXTREMITY DRESSINGS BOTH DRY AND INTACT. NO SIGNS OR SYMPTOMS OF ACUTE DISTRESS NOTED. CALL LIGHT WITHIN REACH. WILL CONTINUE TO MONITOR.
[2017-07-30 20:00] VITALS: BP 138/81
[2017-07-30] MEDS ORDERED: SIMETHICONE 80 MG TAB.CHEW PO SCH (20:05)
[2017-07-30] MEDS ORDERED: BISMUTH SUBSALICYLATE 15 ML UDBTL PO PRN (20:10)
[2017-07-30] MEDS: ATORVASTATIN 20 MG TAB PO SCH (20:19)
--- NOTE | 2017-07-30 20:20 | NUR ---
PM MEDS GIVEN WITH EDUCATION. PATIENT VERBALIZED UNDERSTANDING. PATIENT DENIES PAIN. NO SIGNS OR SYMPTOMS OF ACUTE DISTRESS NOTED. CALL LIGHT WITHIN REACH. WILL CONTINUE TO MONITOR.
[2017-07-31] VITALS: BP 159/89
--- NOTE | 2017-07-31 01:25 | NUR ---
PATIENT RESTING IN BED. PATIENT DENIES PAIN. PATIENT REQUESTED BEDPAN. NO SIGNS OR SYMPTOMS OF ACUTE DISTRESS NOTED. CALL LIGHT WITHIN REACH. WILL CONTINUE TO MONITOR.
[2017-07-31 04:00] VITALS: BP 145/81
--- NOTE | 2017-07-31 04:04 | NUR ---
PATIENT RESTING IN BED. PATIENT DENIES PAIN. NO SIGNS OR SYMPTOMS OF ACUTE DISTRESS NOTED. CALL LIGHT WITHIN REACH. WILL CONTINUE TO MONITOR.
[2017-07-31] MEDS: CIPROFLOXACIN 0.3% OP 2.5 ML BTL LEFT EYE SCH ×2 (04:37→08:12)
[2017-07-31] MEDS: CLINDAMYCIN 600 MG in DEXTROSE 5% 50 ML IV SCH (04:37)
[2017-07-31] MEDS: INSULIN LISPRO SLIDING SCALE 100 UNITS/ML VIAL SUBQ PRN ×2 (04:50→08:21)
[2017-07-31] MEDS: BLOOD GLUCOSE MONITORING 1 DEV DEV FS SCH ×2 (04:51→08:19)
--- NOTE | 2017-07-31 07:16 | NUR ---
ENDORSED PLAN OF CARE TO AM RN. PATIENT IN STABLE CONDITION.
--- NOTE | 2017-07-31 07:19 | NUR ---
RECEIVED REPORT FROM NIGHT RN. PT RESTING IN BED. AAO4. NO S/S OF ACUTE DISTRESS. PT DENIES PAIN. IV SITE PATENT AND INTACT. ON O2 3L NC. DRESSING TO BILATERAL LOWER LEGS DRY AND INTACT. TELE BOX IN PLACE. PLAN OF CARE DISCUSSED WITH PT. PT VERBALIZED UNDERSTANDING. CALL LIGHT WITHIN REACH. SAFETY MEASURES ENSURED. WILL CONTINUE TO MONITOR.
[2017-07-31] MEDS: ALBUTEROL SULFATE/IPRATROPIU 3 ML SOL IH SCH ×2 (07:26→13:15)
[2017-07-31 07:37] LABS: BASOPHILS # (AUTO) 0.1 K/uL (0.00-0.22); BASOPHILS % (AUTO) 0.5 % (0.0-2.0); EOSINOPHILS # (AUTO) 0.1 K/uL (0-0.4); EOSINOPHILS % (AUTO) 0.7 % (0.0-4.0); LYMPHOCYTES # (AUTO) 1.7 K/uL (2.5-16.5); MEAN CORPUSCULAR HEMOGLOBIN 31 pg (27-31); MEAN CORPUSCULAR HGB CONC 33 g/dL (33-37); MEAN CORPUSCULAR VOLUME 92 fL (80-94); MONOCYTES # (AUTO) 0.8 K/uL (0.8-1.0); MONOCYTES % (AUTO) 4.9 % (1.7-9.3); NEUTROPHILS # (AUTO) 14.1 K/uL (1.8-7.7); NEUTROPHILS % (AUTO) 83.9 % (42.2-75.2); PLATELET COUNT (AUTO) 402 K/uL (140-450); RED BLOOD CELL COUNT(AUTO) 4.23 MIL/uL (4.20-5.40); RED CELL DISTRIBUTION WIDTH 13.1 % (11.6-13.7); WHITE BLOOD COUNT (AUTO) 16.8 K/uL (4.8-10.8)
[2017-07-31 07:45] VITALS: BP 149/85
[2017-07-31] MEDS: CALCIUM CARB/VIT-D 500 MG/200 IU 1 TAB PO SCH (08:11)
[2017-07-31] MEDS: metFORMIN 500 MG TAB PO SCH (08:11)
[2017-07-31] MEDS: DOCUSATE SODIUM 100 MG GELCAP PO SCH (08:11)
[2017-07-31] MEDS: NYSTATIN/TRIAMCINOLONE CRM 15 GM TUBE TP SCH (08:12)
[2017-07-31] MEDS: ASPIRIN 81 MG TAB.CHEW PO SCH (08:12)
[2017-07-31] MEDS: METOPROLOL 25 MG TAB PO SCH (08:12)
--- NOTE | 2017-07-31 08:12 | NUR ---
AM MEDS GIVEN WITH EDUCATION. PT VERBALIZED UNDERSTANDING. NO S/S OF ACUTE DISTRESS. PT DENIES PAIN. CALL LIGHT WITHIN REACH. WILL CONTINUE TO MONITOR.
[2017-07-31] MEDS: INSULIN DETEMIR 100 UNITS/ML 10 ML VIAL SUBQ SCH (08:21)
--- NOTE | 2017-07-31 08:50 | NUR ---
SPOKE WITH PATIENT. SHE IS AGREEABLE TO GO TO [facility] FOR PT AND IV ANTIBIOTICS.
[2017-07-31] MEDS ORDERED: LACTOBACILLUS RHAMNOSUS GG 1 EACH CAP PO SCH (09:00)
[2017-07-31] MEDS ORDERED: LISINOPRIL 5 MG TAB PO SCH (09:00)
[2017-07-31 09:19] LABS: ANION GAP 10.3 (8-16); CARBON DIOXIDE 28.1 mmol/L (21-32); CHLORIDE 103 mmol/L (98-107); CREATININE 0.9 mg/dL (0.6-1.3); GLUCOSE 162 mg/dL (74-106); POTASSIUM 3.4 mmol/L (3.5-5.1); SODIUM SERUM 138 mmol/L (136-145); UREA NITROGEN, BLOOD 12 mg/dL (7-18)
[2017-07-31 09:24] LABS: MAGNESIUM 1.9 mg/dL (1.8-2.4)
[2017-07-31 10:57] VITALS: BP 149/85
--- NOTE | 2017-07-31 11:03 | NUR ---
RECEIVED A CALL EARLIER FROM ARIELLE FROM [facility] [place]. THEY HAVE ACCEPTED THE PATIENT. SHE WILL GO TO ROOM 20B UNDER DR. ROD. DELVIN BHAKTA AWARE.
[2017-07-31] MEDS ORDERED: ASPI81CT95 PO (11:09)
[2017-07-31] MEDS ORDERED: CALC-846 PO (11:09)
[2017-07-31] MEDS ORDERED: NYSTRC TP (11:09)
[2017-07-31] MEDS ORDERED: ESCI20TA47 PO (11:09)
[2017-07-31] MEDS ORDERED: LEVEMIR SUBQ (11:09)
[2017-07-31] MEDS ORDERED: ATOR20TA40 PO (11:09)
[2017-07-31] MEDS ORDERED: LISI-424 PO (11:09)
[2017-07-31] MEDS ORDERED: LACT10CA PO (11:09)
[2017-07-31] MEDS ORDERED: GLU500 PO (11:09)
[2017-07-31] MEDS ORDERED: CLIN600P4 IV (11:09)
--- NOTE | 2017-07-31 11:14 | NUR ---
REPORT CALLED TO [facility]. PT STATES SHE LET HER FAMILY KNOW ABOUT THE TRANSFER.
[2017-07-31] MEDS ORDERED: POTASSIUM CHLORIDE 10 MEQ TABER PO SCH (11:27)
--- NOTE | 2017-07-31 12:10 | NUR ---
PT'S DISCHARGE INSTRUCTIONS PROVIDED. PT VERBALIZED UNDERSTANDING. IJ PATENT AND INTACT. DRESSINGS CHANGED. PT CHANGED AND CLEANED. TELE BOX TAKEN OFF. ALL PAPERS SIGNED. AWAITING TRANSPORTATION.
--- NOTE | 2017-07-31 13:15 | NUR ---
BREATHING TX NOT ADMINISTERED AT THIS TIME DUE TO PT BEING D/C. [facility] IS HERE TO TAKE PT.
== END 2017-07-31 13:01 | DRG 871 ==
LOC: MED 03:28 → MTU 05:57 → MIC 11:13 → MTU 07-28 23:09
PROVIDERS: ADMIT Family Medicine; ATTEND Family Medicine
PROC: 05HM33Z Insertion of Infusion Device into Right Internal Jugular Vein, Percutaneous Approach (ICD-10-PCS; principal; 2017-07-27)
PROC: B543ZZA Ultrasonography of Right Jugular Veins, Guidance (ICD-10-PCS; 2017-07-27)
DX: A41.9 Sepsis, unspecified organism (principal); J69.0 Pneumonitis due to inhalation of food and vomit; J96.01 Acute respiratory failure with hypoxia; N17.0 Acute kidney failure with tubular necrosis; E11.10 Type 2 diabetes mellitus with ketoacidosis without coma; D68.59 Other primary thrombophilia; E11.51 Type 2 diabetes mellitus with diabetic peripheral angiopathy without gangrene; E44.1 Mild protein-calorie malnutrition; L03.116 Cellulitis of left lower limb; N39.0 Urinary tract infection, site not specified; Z68.42 Body mass index [BMI] 45.0-49.9, adult; E87.1 Hypo-osmolality and hyponatremia; Z68.41 Body mass index [BMI] 40.0-44.9, adult; L97.819 Non-pressure chronic ulcer of other part of right lower leg with unspecified severity; L03.115 Cellulitis of right lower limb; E11.65 Type 2 diabetes mellitus with hyperglycemia; E66.01 Morbid (severe) obesity due to excess calories; E83.39 Other disorders of phosphorus metabolism; L85.3 Xerosis cutis; E87.6 Hypokalemia; L30.4 Erythema intertrigo; K80.20 Calculus of gallbladder without cholecystitis without obstruction; E83.51 Hypocalcemia; F34.1 Dysthymic disorder; N18.9 Chronic kidney disease, unspecified; I12.9 Hypertensive chronic kidney disease with stage 1 through stage 4 chronic kidney disease, or unspecified chronic kidney disease; Z90.49 Acquired absence of other specified parts of digestive tract; Z91.81 History of falling; Z71.3 Dietary counseling and surveillance; Z87.01 Personal history of pneumonia (recurrent); Z91.19 Patient's noncompliance with other medical treatment and regimen
CPT/HCPCS: 36415; 36600; 71010; 76705; 78445; 80048; 80053; 80076; 80202; 81001; 82803; 82948; 83036; 83605; 83690; 83735; 83880; 84100; 84439; 84443; 84484; 85025; 85610; 85730; 87040; 87070; 87081; 87086; 93005; 93925; 93970; 94640; 96361; 96365; 96372; 96375; 97110; 97116; 97530; 99291; A9510; C1758; J1170; J1642; J1644; J1650; J1815; J2001; J2270; J2543; J2765; J3370; J3480; J3490; J7030; J7042; J7060; J7620; Q0092